=== PATIENT | female | born 1930 | race Caucasian/White ===

== ENCOUNTER 2019-03-02 20:42 | Inpatient (IN) | payer MEDICARE, OTHER ==
[~2019-03-02] VITALS: Ht 149.9 cm; Wt 49.0 kg
[2019-03-02] MEDS ORDERED: ESTRACE 0.5 MG0.5 MG PO (21:22)
[2019-03-02] MEDS ORDERED: ZYLOPRIM100 MG PO (21:22)
[2019-03-02] MEDS ORDERED: ADVAIR HFA [SP]12 GM INH (21:22)
[2019-03-02] MEDS ORDERED: SINGULAIR 4 MG P4 MG PO (21:23)
[2019-03-02 22:03] LABS: BASOPHILS 0.6 % (0-2); EOSINOPHILS 2.7 % (0-7); HEMATOCRIT 34.4 % (36.0-48.0); IMMATURE GRANULOCYTES 0.3 % (0-5); LYMPHOCYTES 14.9 % (15-50); MCH 28.8 pg (26.0-34.0); MCHC 34.9 g/dL (31.0-37.0); MCV 82.5 fL (80.0-100.0); MEAN PLATELET VOLUME 9.6 fL (7.4-10.4); MONOCYTES 11.4 % (2-11); NEUTROPHILS 70.1 % (40-80); PLATELET COUNT 326 10x3/uL (130-400); RBC 4.17 10x6/uL (4.00-5.40); RDW 15.7 % (11.5-14.5); WBC 14.7 10x3/uL (4.8-10.8)
[2019-03-02 22:17] LABS: ALBUMIN 2.4 g/dL (3.4-5.0); ALKALINE PHOSPHATASE 131 U/L (46-116); ALT (SGPT) 14 U/L (10-68); BILIRUBIN - TOTAL 0.28 mg/dL (0.2-1.3); CALC OSMOLALITY 278 mosm/kg (275-300); CALCIUM 8.4 mg/dL (8.5-10.1); CARBON DIOXIDE 26.3 mmol/L (21.0-32.0); CHLORIDE - SERUM 104 mmol/L (98-107); CREATINE KINASE 18 UL (21-215); CREATININE - SERUM 0.7 mg/dL (0.6-1.3); GLUCOSE 139 mg/dL (74-106); POTASSIUM - SERUM 3.4 mmol/L (3.5-5.1); PROTEIN - SERUM 5.5 g/dL (6.4-8.2); SODIUM 138 mmol/L (136-145); UREA NITROGEN 14 mg/dL (7-18); eGFR NON AFRICAN AMERICAN 83 mL/min (90-120)
[2019-03-02 22:24] LABS: TROPONIN-I < 0.017 ng/mL (0.000-0.060)
--- NOTE | 2019-03-02 23:56 | NUR ---
RECIEVED FROM ER VIA [facility]. ALERT,ORIENTED. RESP EVEN AND UNALBORED. NO DISTRESS NOTED. SL TO RIGHT AC WITHOUT REDNESS OR EDEMA NOTED. TAZ WRAP DRSG TO RIGHT LOWER LEG INTACT WITHOUT DRAINAGE NOTED..ORIENTED TO ROOM. FAMILY AT BEDSIDE.
[2019-03-03 03:09] VITALS: BP 95/47; BMI 21.8
[2019-03-03 04:00] VITALS: BP 122/50
[2019-03-03 04:57] LABS: BASOPHILS 0.4 % (0-2); EOSINOPHILS 1.6 % (0-7); HEMATOCRIT 34.6 % (36.0-48.0); HEMOGLOBIN 11.8 g/dL (12-16); IMMATURE GRANULOCYTES 0.3 % (0-5); LYMPHOCYTES 17.7 % (15-50); MCH 28.3 pg (26.0-34.0); MCHC 34.1 g/dL (31.0-37.0); MONOCYTES 13.4 % (2-11); NEUTROPHILS 66.6 % (40-80); PLATELET COUNT 306 10x3/uL (130-400); RBC 4.17 10x6/uL (4.00-5.40); RDW 15.9 % (11.5-14.5); WBC 14.6 10x3/uL (4.8-10.8)
[2019-03-03 05:19] LABS: APTT 32.3 SECONDS (22.8-39.4); INR 1.13 (0.85-1.17)
[2019-03-03 05:20] LABS: D-DIMER-QUANTITATIVE 2.1 ug/mLFEU (0.20-0.54)
[2019-03-03 05:41] LABS: CALC OSMOLALITY 278 mosm/kg (275-300); CALCIUM 8.4 mg/dL (8.5-10.1); CARBON DIOXIDE 29.1 mmol/L (21.0-32.0); CHLORIDE - SERUM 106 mmol/L (98-107); CKMB 0.1 U/L (0.0-3.6); CREATINE KINASE 17 UL (21-215); CREATININE - SERUM 0.7 mg/dL (0.6-1.3); GLUCOSE 99 mg/dL (74-106); MAGNESIUM - SERUM 1.5 mg/dL (1.8-2.4); PRO BNP 435 pg/mL (0-450); SODIUM 139 mmol/L (136-145); TROPONIN-I 0.026 ng/mL (0.000-0.060); UREA NITROGEN 14 mg/dL (7-18); eGFR NON AFRICAN AMERICAN 83 mL/min (90-120)
--- NOTE | 2019-03-03 07:30 | NUR ---
RESTING IN BED WITH LIGHTS OFF. IV SITE TO THE RIGHT AC, SALINE LOCK. DRESSING APPLIED TO THE RIGHT LOWER LEG. RIGHT KNEE IS SLIGHTLY SWOLLEN. ALERT AND ORIENTED X4. DENIES PAIN OR NEEDING ANYTHING AT THIS TIME. BED IN THE LOWEST POSITION AND CALL LIGHT WITHIN REACH. CONTINUE WITH PLAN OF CARE.
[2019-03-03 08:59] VITALS: BP 105/40
[2019-03-03 12:59] LABS: CKMB 0.3 U/L (0.0-3.6); CREATINE KINASE 13 UL (21-215); TROPONIN-I 0.023 ng/mL (0.000-0.060)
[2019-03-03 13:43] VITALS: BP 109/43
--- NOTE | 2019-03-03 14:11 | MORECARE ---
CASE MANAGEMENT DISCHARGE SUMMARY PATIENT: KEVIN ESCOBEDO UNIT: [id number] ADM DATE: 03/02/19 AGE: 88 : [birth year] SEX: F ROOM/BED: D[facility] AUTHOR: DWAINE ABRAHAM PHYSICIAN: REFERRING PHYSICIAN: LEIDY DUBOIS MD DATE OF SERVICE: 03/03/19 Discharge Plan Patient Name: KEVIN ESCOBEDO Facility: [facility]:[place] : 1930 Planned Disposition: SNF w Planned Readmission Anticipated Discharge Date: 03/04/19 Discharge Date: Expected LOS: 2 Initial Reviewer: [email or web address] Initial Review Date: 03/03/2019 Generated: 03/03/19 3:10 pm Patient Name: KEVIN ESCOBEDO Page [id number] at 1411 All edits/amendments must be made on the electronic document DICTATION DATE: 03/03/19 1410 STOP ATTACHER: JENNIFER 03/03/19 1410 RPT#: [id number] DC DATE: STATUS: ADM IN [facility] [address] [place] [address] END OF REPORT
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
[2019-03-03 14:31] VITALS: Ht 149.9 cm; Wt 49.0 kg
[2019-03-03 14:42] LABS: APPEARANCE CLEAR (CLEAR); BILIRUBIN NEGATIVE (NEGATIVE); COLOR YELLOW (YELLOW); GLUCOSE NEGATIVE (NEGATIVE); KETONE NEGATIVE (NEGATIVE); NITRITE NEGATIVE (NEGATIVE); PROTEIN NEGATIVE (NEGATIVE); UROBILINOGEN NORMAL (NORMAL)
[2019-03-03 16:06] LABS: % SATURATION 8 % (15-55); IRON 20 ug/dl (35-150); TOTAL IRON BIND CAPACITY 231 ug/dl (260-445); UNSAT IRON BIND CAPACITY 211 ug/dl (150-375)
--- NOTE | 2019-03-03 17:00 | NUR ---
TOOK DRESSING OFF RT LEG. LOWER LEG HAS BRUISING STARTING BELOW THE KNEE AND DOWN TO THE ANKLE. ONE CUT IS NOTED TO THE STEPHENS WITH NO DRAINAGE NOTED. RE-DRESSED WOUND. BED IN THE LOWEST POSITION AND CALL LIGHT WITHIN REACH. CONTINUE WITH PLAN OF CARE.
[2019-03-03 17:24] VITALS: BP 120/54
--- NOTE | 2019-03-03 19:00 | NUR ---
REPORT RECEIVED AND CARE OF PT ASSUMED. PT LYING IN SUPINE POSITION WATCHING TV. IV TO RIGHT AC SALINE LOCKED.
--- NOTE | 2019-03-03 19:30 | NUR ---
APPLIED DRESSING RO WOUND ON RIGHT STEPHENS: NON STICK TELFA PAD, WRAPPED WITH KERLEX, THEN WRAPPED WITH TAZ WRAP. WILL CONTINUE TO MONITOR FOR NEEDS.
--- NOTE | 2019-03-03 19:45 | NUR ---
ASSISTED PT UP TO USE RESTROOM TO VOID. POSITIONED IN BED FOR COMFORT.
[2019-03-03 20:00] VITALS: BP 94/43
--- NOTE | 2019-03-03 22:53 | NUR ---
APPLIED SOFIA'S PASTE TO REDNESS / STAGE 1 BREAKDOWN ON COCCYX AREA. TURNED PT TO RIGHT PROPPED WITH PILLOWS...POSITIONED FOR COMFORT. WILL CONTINUE TO MONITOR FOR NEEDS.
[2019-03-04] VITALS: BP 96/41
--- NOTE | 2019-03-04 03:57 | NUR ---
ASSISTED PT UP TO USE RESTROOM TO VOID. POSITIONED BACK IN BED FOR COMFORT, TURNED TO LEFT SIDE PROPPED WITH PILLOW. PLEXI BOOTS RE-PLACED AND HEELS BRIDGED WITH PILLOW. WILL CONTINUE TO MONITOR FOR NEEDS.
[2019-03-04 04:00] VITALS: BP 111/52
[2019-03-04 04:58] LABS: BASOPHILS 0.4 % (0-2); EOSINOPHILS 6.6 % (0-7); HEMATOCRIT 32.1 % (36.0-48.0); HEMOGLOBIN 11.2 g/dL (12-16); IMMATURE GRANULOCYTES 0.2 % (0-5); LYMPHOCYTES 33.2 % (15-50); MCH 28.6 pg (26.0-34.0); MCHC 34.9 g/dL (31.0-37.0); MCV 82.1 fL (80.0-100.0); MEAN PLATELET VOLUME 10.1 fL (7.4-10.4); MONOCYTES 12.1 % (2-11); NEUTROPHILS 47.5 % (40-80); PLATELET COUNT 314 10x3/uL (130-400); RBC 3.91 10x6/uL (4.00-5.40); WBC 12.1 10x3/uL (4.8-10.8)
[2019-03-04 05:11] LABS: CALC OSMOLALITY 274 mosm/kg (275-300); CALCIUM 8.1 mg/dL (8.5-10.1); CARBON DIOXIDE 28.5 mmol/L (21.0-32.0); CHLORIDE - SERUM 105 mmol/L (98-107); CREATININE - SERUM 0.7 mg/dL (0.6-1.3); GLUCOSE 90 mg/dL (74-106); MAGNESIUM - SERUM 1.5 mg/dL (1.8-2.4); PHOSPHOROUS 3.7 mg/dL (2.5-4.9); POTASSIUM - SERUM 3.8 mmol/L (3.5-5.1); SODIUM 138 mmol/L (136-145); UREA NITROGEN 11 mg/dL (7-18); eGFR NON AFRICAN AMERICAN 83 mL/min (90-120)
--- NOTE | 2019-03-04 05:28 | NUR ---
MAG LEVEL 1.5 THIS AM REQUIRING COVERAGE WITH MAG OX 400 MG PO Q4HRS X2 DOSES PER THE ELECTROLYTE PROTOCOL. GIVING FIRST DOSE NOW AND WILL PASS ALONG IN REPORT TO GIVE SECOND DOSE IN 4 HOURS.
[2019-03-04 09:01] VITALS: BP 116/58
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
[2019-03-04 12:50] VITALS: BP 110/45
--- NOTE | 2019-03-04 13:57 | NUR ---
IV THERAPY DC'ED FROM RIGHT AC. TIP INTACT. PATIENT ASSISTED TO BATHROOM AND WITH DRESSING. DAUGHTER HERE. DISCHARGE INSTRUCTIONS GIVEN. [facility] HAS ARRIVED TO [employer]. WILL BE WHEELED DOWN BY THEM.
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
== END 2019-03-04 14:10 | DRG 312 ==
LOC: D.ER 20:42 → D.MS 22:40
PROVIDERS: Emergency Medicine; ADMIT Internal Medicine Nephrology; ATTEND Internal Medicine Nephrology
DX: R55 Syncope and collapse (principal); I27.20 Pulmonary hypertension, unspecified; E87.6 Hypokalemia; E83.42 Hypomagnesemia; J45.909 Unspecified asthma, uncomplicated